=== PATIENT | female | born 1965 | race Caucasian/White ===

== ENCOUNTER 2016-05-05 16:23 | Outpatient (CLI) | payer OTHER | END 2016-05-05 16:24 | LOC: LABRHC 16:23 | PROVIDERS: ATTEND Family Medicine | DX: N30.00 Acute cystitis without hematuria (principal) | CPT/HCPCS: 87086 ==

== ENCOUNTER 2016-07-21 13:21 | Outpatient (CLI) | payer OTHER ==
--- NOTE | 2016-07-22 14:37 | Diagnostic Imaging Report ---
PARMINDER MCDERMOTT [facility] [id number] [facility] [address] [address] Report Submission Date: Jul 21, 2016 2:06:19 PM CDT Patient Study Name: JOSELITO BAINS Date: Jul 21, 2016 1:36:27 PM CDT Modality Type: CR Gender: F Description: LOWER EXTREMITY : 63 Institution: [facility] Physician: PARMINDER MCDERMOTT Examination: Lower extremity History: Toe discomfort after injury Findings: 2 views of the 1st digit demonstrates normal cortical margins. No evidence for displaced fracture line. Sesamoid bones distal margin of the 1st metatarsal. No soft tissue foreign body. Minimal articular degenerative changes. Impression: Articular degenerative changes. No displaced fracture. Electronically signed on Jul 21, 2016 2:06:19 PM CDT by: Juan Antonio CASTILLO
== END 2016-07-21 13:22 ==
LOC: LAB 13:21
PROVIDERS: ATTEND Family Medicine
DX: M79.675 Pain in left toe(s) (principal)
CPT/HCPCS: 36415; 73660; 84550

== ENCOUNTER 2017-07-28 08:36 | Outpatient (CLI) | payer OTHER | END 2017-07-28 08:37 | LOC: LAB 08:36 | PROVIDERS: ATTEND Family Medicine | DX: R22.1 Localized swelling, mass and lump, neck (principal) | CPT/HCPCS: 36415; 84443; 86376; 86800 ==